=== PATIENT | female | born 1980 | race Hispanic/Latino ===

== ENCOUNTER → 2023-08-17 | Emergency (ER) | payer OTHER ==
[~2023-08-17] MED LIST: NA CHLORIDE 0.9% 1,000 ML ONE; POTASSIUM 25 MEQ EFFERV TAB ONE
[2023-08-17 02:27] LABS: Absolute Lymphocytes (CBC) 2.8 K/uL (0.7-4.9); Hematocrit 37.6 % (36.0-45.0); MCV 89.7 fL (80-100); MPV 8.6 fL (7.6-11.3); Platelets 246 thou/uL (152-406); RBC Red Blood Cell Count 4.19 M/uL (3.86-4.86)
[2023-08-17 03:09] LABS: Potassium 3.2 mEq/L (3.5-5.1)
--- NOTE | 2023-08-17 03:34 | EDPHYS ---
Physician Documentation [facility] Name: Phyllis Martin Age: 43 yrs Sex: Female : 1980 Arrival Date: 08/17/2023 Time: 01:36 Bed 19 Private MD: MILA Physician Denny Cannon HPI: 08/17 03:27 This 43 yrs old Female presents to ER via Ambulatory with complaints of shashank Vaginal Bleeding, patitent is 13 weeks and woke up with vag bleeding. 03:27 The patient presents with vaginal bleeding that is light. Onset: The symptoms/episode shashank began/occurred just prior to arrival. Modifying factors: The symptoms are alleviated by nothing, the symptoms are aggravated by nothing. Associated signs and symptoms: The patient has no apparent associated signs or symptoms. Severity of symptoms: At their worst the symptoms were mild, in the emergency department the symptoms are unchanged. The patient is sexually active, reportedly has a single partner. The patient has not experienced similar symptoms in the past. 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 - Social history:: Smoking status: Patient denies any tobacco usage or history of. - Family history:: not pertinent. ROS: 03:27 Constitutional: Negative for fever, chills, and weight loss, Eyes: Negative for injury, shashank pain, redness, and discharge, ENT: Negative for injury, pain, and discharge, Neck: Negative for injury, pain, and swelling, Cardiovascular: Negative for chest pain, palpitations, and edema, Respiratory: Negative for shortness of breath, cough, wheezing, and pleuritic chest pain, Abdomen/GI: Negative for abdominal pain, nausea, vomiting, diarrhea, and constipation, Back: Negative for injury and pain, MS/Extremity: Negative for injury and deformity, Skin: Negative for injury, rash, and discoloration, Neuro: Negative for headache, weakness, numbness, tingling, and seizure, Psych: Negative for depression, anxiety, suicide ideation, homicidal ideation, and hallucinations, Allergy/Immunology: Negative for hives, rash, and allergies, Endocrine: Negative for neck swelling, polydipsia, polyuria, polyphagia, and marked weight changes, 03:27 : Positive for vaginal bleeding, Exam: 03:27 Constitutional: This is a well developed, well nourished patient who is awake, alert, shashank and in no acute distress. Head/Face: Normocephalic, atraumatic. Eyes: Pupils equal round and reactive to light, extra-ocular motions intact. Lids and lashes normal. Conjunctiva and sclera are non-icteric and not injected. Cornea within normal limits. Periorbital areas with no swelling, redness, or edema. ENT: Nares patent. No nasal discharge, no septal abnormalities noted. Tympanic membranes are normal and external auditory canals are clear. Oropharynx with no redness, swelling, or masses, exudates, or evidence of obstruction, uvula midline. Mucous membranes moist. Neck: Trachea midline, no thyromegaly or masses palpated, and no cervical lymphadenopathy. Supple, full range of motion without nuchal rigidity, or vertebral point tenderness. No Meningismus. Chest/axilla: Normal chest wall appearance and motion. Nontender with no deformity. No lesions are appreciated. Cardiovascular: Regular rate and rhythm with a normal S1 and S2. No gallops, murmurs, or rubs. Normal PMI, no JVD. No pulse deficits. Respiratory: Lungs have equal breath sounds bilaterally, clear to auscultation and percussion. No rales, rhonchi or wheezes noted. No increased work of breathing, no retractions or nasal flaring. Abdomen/GI: Soft, non-tender, with normal bowel sounds. No distension or tympany. No guarding or rebound. No evidence of tenderness throughout. Back: No spinal tenderness. No costovertebral tenderness. Full range of motion. Pelvic Exam: Normal external genitalia. Speculum exam with closed cervical os, no discharge or bleeding noted. Bimanual exam with normal adnexa, no adnexal or cervical motion tenderness. Normal uterus. Skin: Warm, dry with normal turgor. Normal color with no rashes, no lesions, and no evidence of cellulitis. MS/ Extremity: Pulses equal, no cyanosis. Neurovascular intact. Full, normal range of motion. Neuro: Awake and alert, GCS 15, oriented to person, place, time, and situation. Cranial nerves II-XII grossly intact. Motor strength 5/5 in all extremities. Sensory grossly intact. Cerebellar exam normal. Normal gait. Psych: Awake, alert, with orientation to person, place and time. Behavior, mood, and affect are within normal limits. Vital Signs: 01:48 BP 129 / 72; Pulse 77; Resp 16; Temp 97.7(O); Pulse Ox 100% on R/A; Weight 67.59 kg jb4 (R); Height 5 ft. 6 in. (R); Pain 0/10; 03:44 BP 122 / 77; Pulse 71; Resp 17 S; Pulse Ox 100% on R/A; lg3 01:48 Body Mass Index 24.05 (67.59 kg, 167.64 cm) jb4 01:48 Pain Scale: Adult jb4 MDM: 01:47 Patient medically screened. [facility] 03:30 Differential diagnosis: molar preganancy, ovarian cyst, placenta previa, ruptured shashank ectopic , urinary tract infection. Data reviewed: vital signs, nurses notes, lab test result(s), radiologic studies, ultrasound. Consideration of Admission/Observation Escalation of care including admission/observation considered. I considered the following discharge prescriptions or medication management in the emergency department Medications were administered in the Emergency Department. See MAR. Independent interpretation of the following test(s) in the Emergency Department Radiology Department Ultrasound: My interpretation is usg. Care significantly affected by the following chronic conditions: none. Counseling: I had a detailed discussion with the patient and/or guardian regarding the historical points, exam findings, and any diagnostic results supporting the discharge/admit diagnosis, lab results, radiology results, the need for outpatient follow up, for definitive care, an OB/Gyne specialist. 08/17 01:53 Order name: Abo/rh Typing; Complete Time: 03:27 [facility] 08/17 01:53 Order name: Basic Metabolic Panel; Complete Time: 03:27 [facility] 08/17 01:53 Order name: CBC with Diff; Complete Time: 02:44 [facility] 08/17 01:53 Order name: Test, Urine 08/17 01:53 Order name: Quantitative Hcg; Complete Time: 03:27 [facility] 08/17 01:53 Order name: Urinalysis w/ reflexes 08/17 01:53 Order name: US Transvaginal Ob [facility] 08/17 01:53 Order name: IV Saline Lock; Complete Time: 02:10 [facility] 08/17 01:53 Order name: Labs collected and sent; Complete Time: 02:10 [facility] 08/17 01:53 Order name: NPO; Complete Time: 02:10 [facility] Administered Medications: 02:38 Drug: NS 0.9% IV 1000 ml IV at 1 bolus Per protocol; 1000 mL bolus Route: IV; Rate: 1 kl bolus; Site: right antecubital; 03:45 Follow up: Response: No adverse reaction; IV Status: Completed infusion; IV Intake: lg3 1000ml 03:32 Drug: Potassium PO Effervescent Tablet 25 mEq PO once; dissolve in 4 ounces of water or lg3 juice Route: PO; 03:45 Follow up: Response: No adverse reaction lg3 Disposition Summary: 08/17/23 03:33 Discharge Ordered Notes: Location: Home shashank Problem: new shashank Symptoms: have improved shashank Condition: Stable shashank Diagnosis - Threatened - 13 weeks, subchoronic hemorrhage shashank - Hypokalemia shashank Followup: shashank - With: Private Physician - When: 1 - 2 days - Reason: Recheck today's complaints, Continuance of care, Re-evaluation by your physician Discharge Instructions: - Discharge Summary Sheet shashank - Potassium Content of Foods shashank - Care shashank - Threatened Miscarriage shashank - Vaginal Bleeding During , First Trimester shashank - Vaginal Bleeding During , Second Trimester shashank - First Trimester of , [id number] shashank - First Trimester of shashank - Threatened Miscarriage, [id number] shashank - Hypokalemia shashank - Vaginal Bleeding During , First Trimester, [id number] [facility] Forms: - Medication Reconciliation Form shashank - Thank You Letter shashank - Antibiotic Education shashank - Prescription Opioid Use shashank - Patient Portal Instructions shashank - Leadership Thank You Letter shashank Signatures: Dispatcher [employer] Ninfa Carrington RN RN kl Anderson, Corey, MD MD cha Bryson, James RN RN jb4 Susan Newton RN RN lg3
--- NOTE | 2023-08-17 03:34 | ER ---
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 Coronavirus screen: At this time, the client does not indicate any symptoms associated with coronavirus-19. Ebola Screen: No symptoms or risks identified at this time. Initial Sepsis Screen: Does the patient meet any 2 criteria? No. Patient's initial sepsis screen is negative. Does the patient have a suspected source of infection? No. Patient's initial sepsis screen is negative. Risk Assessment: Do you want to hurt yourself or someone else? Patient reports no desire to harm self or others. Onset of symptoms was August 17, 2023. Transition of care: patient was not received from another setting of care. 01:48 Method Of Arrival: Ambulatory jb4 01:48 Acuity: NORMA 3 jb4 SEISMIC ENGINEER: 03:32 1, Full Term 0, Premature 0, 0, Living 0, unknown shashank Historical: - Allergies: 01:49 No Known Allergies; jb4 - PMHx: 01:49 None; jb4 - PSHx: 01:49 None; jb4 - Immunization history:: Adult Immunizations up to date. - Social history:: Smoking status: Patient denies any tobacco usage or history of. - Family history:: not pertinent. Screenin:11 [facility] ED Fall Risk Assessment (Adult) History of falling in the last 3 months, lg3 including since admission No falls in past 3 months (0 pts). Abuse screen: Denies threats or abuse. Denies injuries from another. Nutritional screening: No deficits noted. Tuberculosis screening: No symptoms or risk factors identified. Assessment: 02:11 General: Appears in no apparent distress. comfortable, Behavior is calm, cooperative. lg3 Pain: Denies pain. Neuro: No deficits noted. Aviles Agitation-Sedation Scale (RASS): 0 - Alert and Calm Level of Consciousness is awake, alert, obeys commands, Oriented to person, place, time, situation. Cardiovascular: No deficits noted. Denies chest pain, shortness of breath, Capillary refill < 3 seconds Clubbing of nail beds is absent JVD is absent Patient's skin is warm and dry. Respiratory: No deficits noted. Airway is patent Respiratory effort is even, unlabored, Respiratory pattern is regular, symmetrical. GI: No deficits noted. Abdomen is round non-distended, Bowel sounds present X 4 quads. : Reports vaginal bleeding that is bright red, moderate flow. EENT: No deficits noted. No signs and/or symptoms were reported regarding the EENT system. Derm: No deficits noted. No signs and/or symptoms reported regarding the dermatologic system. Skin is intact, is healthy with good turgor, Skin is dry, Skin is normal, Skin temperature is warm. Musculoskeletal: No deficits noted. No signs and/or symptoms reported regarding the musculoskeletal system. Circulation, motion, and sensation intact. Range of motion: intact in all extremities. 03:44 Reassessment: Patient appears in no apparent distress at this time. No changes from lg3 previously documented assessment. Patient and/or family updated on plan of care and expected duration. Pain level reassessed. Patient is alert, oriented x 3, equal unlabored respirations, skin warm/dry/pink. Vital Signs: 01:48 BP 129 / 72; Pulse 77; Resp 16; Temp 97.7(O); Pulse Ox 100% on R/A; Weight 67.59 kg jb4 (R); Height 5 ft. 6 in. (R); Pain 0/10; 03:44 BP 122 / 77; Pulse 71; Resp 17 S; Pulse Ox 100% on R/A; lg3 01:48 Body Mass Index 24.05 (67.59 kg, 167.64 cm) jb4 01:48 Pain Scale: Adult jb4 ED Course: 01:40 Patient arrived in ED. gm2 01:45 Denny Cannon MD is Attending Physician. [facility] 01:49 Triage completed. jb4 01:49 Arm band placed on right wrist. jb4 02:10 Inserted saline lock: 20 gauge in right antecubital area, using aseptic technique. lg3 Blood collected. 02:11 Patient has correct armband on for positive identification. Placed in gown. Bed in low lg3 position. Call light in reach. Side rails up X 1. Client placed on continuous cardiac and pulse oximetry monitoring. NIBP monitoring applied. Door closed. Noise minimized. Warm blanket given. Family accompanied patient. 02:11 Patient maintains SpO2 saturation greater than 95% on room air. lg3 02:42 Susan Newton, RN is Primary Nurse. lg3 03:12 Transvaginal Ob In Process Unspecified. EDMS 03:44 No provider procedures requiring assistance completed. IV discontinued, intact, lg3 bleeding controlled. Administered Medications: 02:38 Drug: NS 0.9% IV 1000 ml IV at 1 bolus Per protocol; 1000 mL bolus Route: IV; Rate: 1 kl bolus; Site: right antecubital; 03:45 Follow up: Response: No adverse reaction; IV Status: Completed infusion; IV Intake: lg3 1000ml 03:32 Drug: Potassium PO Effervescent Tablet 25 mEq PO once; dissolve in 4 ounces of water or lg3 juice Route: PO; 03:45 Follow up: Response: No adverse reaction lg3 Medication: 03:44 VIS not applicable for this client. lg3 Intake: 03:45 IV: 1000ml; Total: 1000ml. lg3 Outcome: 03:33 Discharge ordered by . shashank 03:44 Discharged to home ambulatory, with significant other, lg3 03:44 Condition: stable 03:44 Discharge instructions given to patient, Instructed on discharge instructions, follow up and referral plans. Demonstrated understanding of instructions, follow-up care, 03:46 Patient left the ED. lg3 Signatures: Dispatcher [employer] EDNinfa Cadet RN RN kl Anderson, Corey, MD MD cha Bryson, James RN RN jb4 Susan Newton RN RN lg3 Mitchell, Ginger 2
[2023-08-17 04:11] LABS: Specific Gravity 1.015 (1.005-1.030)
[2023-08-17 04:12] LABS: Specific Gravity 1.015 (1.005-1.030); Urine Bacteria <20 /HPF (<20); Urine Bilirubin NEGATIVE (Negative); Urine Blood 3+ (Negative); Urine Clarity Turbid (Clear); Urine Color Light-Yellow (Yellow); Urine Glucose NEGATIVE (Negative); Urine Mucus 1+ /HPF (None Seen); Urine Protein NEGATIVE (Negative); Urine RBC <5 /HPF (None Seen); Urine Urobilinogen Normal (Normal); Urine pH 6.5 (5.0-7.0)
[2023-08-17 04:44] VITALS: BP 122/77; TEMP 97.7; O2SAT 100
--- NOTE | 2023-08-17 07:49 | RAD REPORT ---
EXAM DESCRIPTION: Transvaginal OB 08/17/2023 3:23 AM SAW FEEDER CLINICAL HISTORY: 43 years, Female, ABD CRAMPING, COMPARISON: None TECHNIQUE: Real time transabdominal and transvaginal sonographic imaging, including color-flow imagi ng, was performed by the utility maintenance worker. Multiple customer service representative teller static images were saved for review. FINDINGS: The uterus measures 11.02 x 6.68 x 9.54 cm. No uterine fibroids are visualized. No additio nal myometrial lesions. The right ovary measures 2.48 x 1.65 x1.56 cm. There are no focal lesions seen. The left ovary was not visualized. There is a single live intrauterine gestation. MEASUREMENTS: CRL: 5.35 cm, consistent with 12 weeks 7 days. heart rate is 152 beats per minute. The placenta is not yet visible due to early gestational age. There is a small subchorionic hemorrhag e adjacent to the gestational sac nearby the region of the early placentation measuring 1.3 x 0.2 cm The amniotic fluid appears to be normal. No significant abnormalities. The gestational sac appears to be within normal limits. Average age by ultrasound is 12 weeks 0 days. Ultrasonographic estimated date of delivery is 02/29/2024. IMPRESSION: Single live intrauterine gestation with FHR of 152 bpm. Mean age by ultrasound is 12 wee ks o days. ASTRID by ultrasound is February 29, 2024. Small subchorionic hemorrhage. Left ovary was not visualized. Electronically signed by: Constantin Mederos MD 08/17/2023 03:33 AM SAW FEEDER Due to temporary technical issues with the PACS/Fluency reporting system, reports are being signed by the in house radiologist without review as a courtesy to ensure prompt reporting. The interpreting r adiologist is fully responsible for the content of the report.
== END ==
LOC: ER 01:36
DX: O20.0 Threatened abortion (principal); Z3A.13 13 weeks gestation of pregnancy; O26.899 Other specified pregnancy related conditions, unspecified trimester; E87.6 Hypokalemia
CPT/HCPCS: 85025; 81001; 80048; 36415; 86900; 81025; 86901; 84702; 76817; 96360; 99285; J7030